=== PATIENT | female | born 1935 | race Asian ===

== ENCOUNTER 2017-01-03 11:00 | Outpatient (RCR) | payer OTHER | END 2017-01-21 | disposition home or self-care (01) | LOC: PTY 11:00 | PROVIDERS: ATTEND Internal Medicine | DX: M25.561 Pain in right knee (principal); M25.562 Pain in left knee ==

== ENCOUNTER 2017-01-24 15:00 | Outpatient (RCR) | payer OTHER | END 2017-02-21 | disposition home or self-care (01) | LOC: PTY 15:00 | PROVIDERS: ATTEND Internal Medicine | DX: M25.561 Pain in right knee (principal); M25.562 Pain in left knee ==